=== PATIENT | female | born 1955 | race Caucasian/White ===

== ENCOUNTER 2021-06-26 10:40 | Observation (INO) | payer OTHER ==
--- OUTSIDE RECORDS SUMMARY | 2021-06-26 10:49 | XMS REPORT | Continuity of Care Document ---
:1955 Author Organization [facility] t Address [address] [place] [address] Dr. Membreno[address] [place] [address] Care Team Providers Name Role Phone Sagar Sebastian MD Attending Clinician Problems This patient has no known problems. Allergies, Adverse Reactions, Alerts This patient has no known allergies or adverse reactions. Medications This patient has no known medications. Procedures This patient has no known procedures. Encounters Start End Encounter Admission Attending Care Care Encounter Source Date/Time Date/Time Type Type Clinicians Facility Department ID 2021-06-25 2021-06-25 Telephone [facility] [id number] 00:00:00 00:00:00 Uvaldo Keith [place] [id number] [place] [id number] [facility] [id number] [address] 2021-06-19 2021-06-19 [facility] [id number] 09:35:11 23:59:00 Encounter Uvaldo Keith [facility] [id number] [facility] [id number] CENTER AT [phone] [facility] [address] [facility] 2021-06-19 2021-06-19 [facility] [id number] 09:33:59 09:34:00 Encounter Uvaldo Gene SPECIALTY [id number] [facility] [id number] CENTER AT [id number] [facility] [address] [facility] 2021-06-19 2021-06-19 Telephone [facility], [facility] [id number] 00:00:00 00:00:00 Uvaldo Cannon [id number] [place] [id number] [facility] [phone] [address] 2021-06-13 2021-06-13 [facility] [id number] 00:00:00 00:00:00 Uvaldo Cannon [id number] [place] [id number] [facility] [phone] [address] 2021-06-11 2021-06-11 [facility] [id number] 00:00:00 00:00:00 Uvaldo Cannon [id number] [place] [id number] [facility] [phone] [address] 2021-06-05 2021-06-05 [facility] [id number] 00:00:00 00:00:00 Uvaldo Cannon [id number] [place] [id number] [facility] [phone] [address] Results This patient has no known results.
--- NOTE | 2021-06-26 12:27 | RAD REPORT ---
EXAM DESCRIPTION: US - Abdomen Exam Limited - 06/26/2021 11:48 am CLINICAL HISTORY: RUQ pain COMPARISON: CHEST PA AND LAT 2 VIEW dated 06/24/2011 FINDINGS: The gallbladder was not visualized sonographically likely removed. The common bile duct is normal measuring 3 mm. The liver demonstrates the liver has a irregular heterogenous appearance to the parenchyma which may be related to fatty infiltration, however recommend additional imaging of the liver with MRI liver pr otocol. IMPRESSION: The gallbladder is probably absent. No biliary dilatation of significance seen. Somewhat irregular and heterogenous parenchymal pattern seen involving the liver. This may be related to fatty infiltration, however recommend MRI of the liver for better assessment.
--- NOTE | 2021-06-26 12:30 | ER ---
Nurse's Notes [facility] Name: Lory Garza Age: 65 yrs Sex: Female : 1955 Arrival Date: 06/26/2021 Time: 10:50 Bed Waiting Private MD: Maurizio Simpson V Diagnosis: Right upper quadrant abdominal tenderness Presentation: 06/26 12:19 Chief complaint: Patient states: Sent for direct admission by Dr. Simpson for RUQ pain. ss Coronavirus screen: Client denies travel out of the [place] in the last 14 days. Ebola Screen: Patient denies exposure to infectious person. Patient denies travel to an Ebola-affected area in the 21 days before illness onset. Initial Sepsis Screen: Does the patient have a suspected source of infection? No. Patient's initial sepsis screen is negative. 12:19 Method Of Arrival: Ambulatory ss 12:19 Acuity: ANNIE 3 ss Triage Assessment: 12:26 General: Appears Behavior is. General: Appears in no apparent distress. distressed, kg Behavior is calm, cooperative, appropriate for age, quiet. Pain: Unable to use pain scale. Dementia. GI:. Historical: - Immunization history:: Adult Immunizations up to date, Client reports receiving the 2nd dose of the Covid vaccine. Screenin:25 Abuse screen: Denies threats or abuse. Denies injuries from another. Nutritional kg screening: No deficits noted. Tuberculosis screening: No symptoms or risk factors identified. Fall Risk None identified. Vital Signs: 12:22 BP 153 / 76; Pulse 85; Resp 20; Temp 98.0; Pulse Ox 99% ; Weight 90.8 kg; Height 5 ft. kg 0 in. (152.40 cm); 12:22 Body Mass Index 39.09 (90.80 kg, 152.40 cm) kg ED Course: 10:50 Patient arrived in ED. as 10:50 Maurizio Simpson MD is Private Physician. as 12:19 Arm band placed on right wrist. ss 12:20 Triage completed. ss 12:25 Patient has correct armband on for positive identification. kg 12:28 Maurizio Simpson MD is Hospitalizing Provider. ss Administered Medications: No medications were administered Outcome: 12:27 Admitted to Med/surg via wheelchair. ss 12:27 Condition: good 12:27 Instructed on the need for admit. 12:29 Decision to Hospitalize by Provider. 12:30 Patient left the ED. ss Signatures: Aditi Ordaz Shelby, RN RN ss Anjelica Perez RN RN kg Corrections: (The following items were deleted from the chart) : 12: Allergies: No Known Allergies; kg kg 12: 12: Home Meds: None; kg kg
[2021-06-26 13:13] VITALS: BMI 37.8
[2021-06-26] MEDS ORDERED: NACHLORIDE 0.45% 1,000 ML IV SCH (14:00)
[2021-06-26 15:06] VITALS: O2SAT 98
--- NOTE | 2021-06-26 15:32 | RAD REPORT ---
EXAM DESCRIPTION: RAD - Chest Pa And Lat (2 Views) - 06/26/2021 3:19 pm CLINICAL HISTORY: RUQ Abdominal pain COMPARISON: CHEST PA AND LAT 2 VIEW dated 06/24/2011; CHEST SINGLE VIEW dated 01/15/2009; CHEST PA AND LAT 2 VIEW dated 01/06/2004 FINDINGS: No evidence of edema or pneumonia. The heart size is within normal limits.No acute osseous abnormality. No significant pleural effusions or pneumothorax. Surgical clips in right upper quadran t. IMPRESSION: No acute cardiopulmonary disease.
--- NOTE | 2021-06-26 16:04 | CON ---
Date of Consultation: 06/26/2021 Reason For Consultation: Abdominal pain. History Of Present Illness: The patient is a 65-year-old female, who presents to Dr. Simpson's office with several months history of upper abdominal pain associated with bloating, belching, and heartburn . No diarrhea or constipation. No blood in her stool. No weight loss. No loss of appetite. No dy suria or hematuria. No sore throat, runny nose, cough, headaches, or dizziness. No chest pain. No fever or chills. Please note, the patient is a poor historian because of her Alzheimer. pro vided most of the history. She saw Dr. Simpson and was tender in the upper abdomen. She was admitted for further workup. Review of Systems: Otherwise unremarkable. Past Medical History: Significant for Alzheimer. Past Surgical History: Hysterectomy, possible cholecystectomy. Allergies: INCLUDE HYDROCODONE. Social History: The patient does not smoke or drink. Family History: Chemical induced cancer in the father secondary to benzidine, the type of cancer unk nown. Physical Examination: Vital Signs: Stable. She is currently afebrile. General: Awake alert, confused. Head and Neck: No masses. Chest: Clear. Heart: S1 and S2. Abdomen: Soft, nondistended. Positive bowel sounds. Mild epigastric right upper quadrant and left lower quadrant tenderness. No rebound, rigidity, or guarding. Extremities: Adequately perfused. Nontender. Neuro: Nonfocal. Laboratory Data: CBC is pending. Chemistry is pending. Ultrasound done earlier today reviewed and it shows gallbladder is probably absent. No biliary dilatation of significance seen. Somewhat irreg ular and heterogeneous parenchymal pattern seen involving the liver. This may be related to fatty in filtration. Recommended MRI of the liver for better assessment. Assessment: A 65-year-old female with multiple medical problems and abdominal pain etiology unclear at this time. Discussed the case with Dr. Simpson. Recommendations: We will proceed with CT of the abdomen and pelvis to better evaluate all the other organs grossly and then we will proceed with MRI of the liver if it is indicated. We will do serial abdominal exam and clinically follow this patient at this time. No need for any acute surgical inter vention. She may also benefit from a GI workup. stated that she did have a colonoscopy 2 an d half years ago, which was unremarkable. /MODL Voice ID: [id number] Report ID: [id number]
[2021-06-26 16:43] LABS: Absolute Lymphocytes (CBC) 2.2 K/uL (0.7-4.9); Hematocrit 48.6 % (36.0-45.0); Lymphocytes % 27.8 % (15.3-44.8); MPV 8.5 fL (7.6-11.3); Protime INR 1.05; RBC Red Blood Cell Count 5.12 M/uL (3.86-4.86)
[2021-06-26 16:54] LABS: Albumin 3.6 g/dL (3.4-5.0); Bilirubin Direct 0.2 mg/dL (0-0.2); Bilirubin Total 0.6 mg/dL (0.2-1.0); Potassium 3.8 mmol/L (3.5-5.1); Protein, Total 7.8 g/dL (6.4-8.2)
[2021-06-26] MEDS ORDERED: PNEUMOCOCCAL VACCINE 0.5 ML IMVAC ONE (17:00)
[2021-06-26 17:19] LABS: Magnesium 2.5 mg/dL (1.8-2.4); Phosphorus 3.5 mg/dL (2.5-4.9); Thyroid Stimulating Hormone 1.02 uIU/mL (0.360-3.740)
--- NOTE | 2021-06-26 18:16 | RAD REPORT ---
EXAM DESCRIPTION: CTAbdomen Pelvis W Contrast - 06/26/2021 6:09 pm CLINICAL HISTORY: Abdominal pain. RUQ pain COMPARISON: No comparisons TECHNIQUE: Biphasic CT imaging of the abdomen and pelvis was performed with 100 ml non-ionic IV cont rast. All CT scans are performed using dose optimization technique as appropriate and may include automated exposure control or mA/KV adjustment according to patient size. FINDINGS: The lung bases are clear.Small hiatal hernia. The liver, spleen, pancreas, adrenal glands and kidneys are within normal limits. Cholecystectomy. No bowel obstruction, free air, free fluid or abscess. Scattered colonic diverticula. No evidence of acute diverticulitis. The appendix is normal. No evidence of significant lymphadenopathy. No suspicious bony findings. IMPRESSION: No acute intra-abdominal or pelvic finding.
[2021-06-26] MEDS ORDERED: ACETAMINOPHEN 325 MG TABLET PO PRN (19:00)
[2021-06-26] MEDS ORDERED: ONDANSETRON 4 MG/2 ML VIAL IV PRN (19:00)
[2021-06-26] MEDS ORDERED: ONDANSETRON 4 MG (ODT) TAB PO PRN (19:00)
[2021-06-26] MEDS ORDERED: DIPHENHYDRAMINE 25 MG TAB/CAP PO PRN (19:00)
[2021-06-26] MEDS ORDERED: POLYETHYL GLY 3350 17 GM/DOSE PO PRN (19:00)
[2021-06-26] MEDS ORDERED: LOPERAMIDE HCL 2 MG CAPSULE PO PRN (19:00)
[2021-06-26] MEDS ORDERED: METRONIDAZOLE 500mg IVPB 500 MG/100 ML BAG IV SCH (20:00)
[2021-06-26] MEDS: ENOXAPARIN 40 MG/0.4 ML SQ SCH (20:00)
[2021-06-26] MEDS ORDERED: CEFOXITIN/SWI 1gm 1 GM/10 ML SYR IVP SCH (20:00)
[2021-06-27 06:20] LABS: Basophils % 0.7 % (0-1.3); Hematocrit 45.3 % (36.0-45.0); MPV 8.8 fL (7.6-11.3); RBC Red Blood Cell Count 4.83 M/uL (3.86-4.86)
[2021-06-27 06:41] LABS: Magnesium 2.5 mg/dL (1.8-2.4); Potassium 3.9 mmol/L (3.5-5.1)
[2021-06-27] MEDS ORDERED: DIVALPROEX SODIUM 125 MG PO SCH (09:00)
[2021-06-27] MEDS: ENOXAPARIN 40 MG/0.4 ML SQ SCH (09:00)
[2021-06-27] MEDS ORDERED: PANTOPRAZOLE 40 MG PO SCH (09:00)
[2021-06-27] MEDS ORDERED: OXYBUTYNIN CHLORIDE 5 MG PO SCH (09:00)
[2021-06-27] MEDS ORDERED: MEMANTINE HCL 28 MG PO SCH (09:00)
[2021-06-27 10:06] VITALS: BP 140/77; TEMP 97.4
--- NOTE | 2021-06-27 11:54 | P.DS ---
Admission Date: 06/26/21 Discharge Date: 06/27/21 Disposition: ROUTINE DISCHARGE Discharge Condition: FAIR Brief History of Present Illness: MS RODRIGUEZ IS SEVERELY DEMENTED AND NOT ABLE TO EXPRESS MUCH. SHE HASD SEVERE R SDIE ABDOMEN PAIN. SHE LATER WE FOUND HAS NO GALL BLADDER. NO SCARS ARE VISIBLE. SONOGRAM AND CT SCAN SHOW NO ISSUES. SHE IS STABLE TO GO HOME. Vital Signs/Physical Exam: Temp Pulse Resp BP Pulse Ox 97.4 F 51 17 140/77 98 06/27/21 08:00 06/27/21 08:00 06/27/21 08:00 06/27/21 08:00 06/27/21 08:00 Laboratory Data at Discharge: WBC 8.20 K/uL (4.3-10.9) 06/27/21 05:55 Hgb 15.7 g/dL (12.0-15.0) H 06/27/21 05:55 Hct 45.3 % (36.0-45.0) H 06/27/21 05:55 Plt Count 188 K/uL (152-406) 06/27/21 05:55 PT 12.1 SECONDS (9.5-12.5) 06/26/21 16:23 INR 1.05 06/26/21 16:23 APTT 29.9 SECONDS (24.3-36.9) 06/26/21 16:23 Sodium 142 mmol/L (136-145) 06/27/21 05:55 Potassium 3.9 mmol/L (3.5-5.1) 06/27/21 05:55 BUN 11 mg/dL (7-18) 06/27/21 05:55 Creatinine 0.70 mg/dL (0.55-1.3) 06/27/21 05:55 Glucose 79 mg/dL (74-106) 06/27/21 05:55 Phosphorus 3.5 mg/dL (2.5-4.9) 06/26/21 16:23 Magnesium 2.5 mg/dL (1.8-2.4) H 06/27/21 05:55 Total Bilirubin 0.6 mg/dL (0.2-1.0) 06/26/21 16:23 AST 17 U/L (15-37) 06/26/21 16:23 ALT 29 U/L (12-78) 06/26/21 16:23 Alkaline Phosphatase 70 U/L (45-117) 06/26/21 16:23 Home Medications: Divalproex Sodium 125 mg PO TID 06/27/21 Donepezil HCl 10 mg PO BEDTIME 06/27/21 Levothyroxine [Synthroid] 88 mcg PO [id number] 06/27/21 Memantine HCl [Memantine HCl ER] 28 mg PO DAILY 06/27/21 Oxybutynin Chloride [Ditropan*] 5 mg PO BID 06/27/21 Pantoprazole [Protonix Tab*] 40 mg PO DAILY 06/27/21 Physician Discharge Instructions: PROBLEM: Abdominal Pain GOAL: Clear understanding of disease process INSTRUCTIONS: Diet: as tolerated Activity: as tolerated Diet: Regular Followup: Maurizio Simpson MD [Primary Care Provider] - (Call office to make an appointment. )
[2021-06-27] MEDS ORDERED: HOME MED 1 EA UNK (Donepezil Hcl [Donepezil Hcl] 10 MG Tablet) PO SCH (21:00)
[2021-06-28] MEDS ORDERED: LEVOTHYROXINE PO SCH (06:00)
== END 2021-06-27 12:19 | disposition home or self-care (01) ==
LOC: ER 10:40 → ERHOLD 10:49 → 2ND 12:47
PROVIDERS: ADMIT Internal Medicine; ATTEND Internal Medicine
DX: R10.11 Right upper quadrant pain (principal); G30.9 Alzheimer's disease, unspecified; F02.80 Dementia in other diseases classified elsewhere, unspecified severity, without behavioral disturbance, psychotic disturbance, mood disturbance, and anxiety; Z90.710 Acquired absence of both cervix and uterus; Z88.6 Allergy status to analgesic agent; Z80.9 Family history of malignant neoplasm, unspecified
CPT/HCPCS: 93005; 85025 ×2; 80048 ×2; 36415 ×2; 83735 ×2; 84100; 85610; 80076; 85730; 84443; 82607; 82306; 74177; 71046; 76705; 99285; Q9967; J1650; G0378 ×4

== ENCOUNTER 2022-04-07 13:48 | Observation (INO) | payer OTHER ==
--- OUTSIDE RECORDS SUMMARY | 2022-04-07 16:01 | XMS REPORT | Continuity of Care Document ---
:1955 Author Organization Formerly [facility] t Address [address] [place] [address] Dr. [address]oro [address] [place] [address] Care Team Providers Name Role Phone BarronAlyssa Primary Care Physician GRIMM Attending Clinician Unavailable Jessica Sebastian MD Attending Clinician Ebony STARKEY Attending Clinician EBONY Attending Clinician Unavailable Leopoldo RAMOS Attending Clinician Unavailable Only, Db Test Attending Clinician Unavailable Rj STARKEY Attending Clinician RJ Attending Clinician Unavailable UNKNOWN Attending Clinician Unavailable JESSICA SEBASTIAN Attending Clinician Unavailable JESSICA SEBASTIAN Attending Clinician Unavailable Tisha Attending Clinician Unavailable Tisha Admitting Clinician Unavailable Payers Payer Name Policy Type Policy Number Effective Date Expiration Date S susanne HMO/QPOS/SELECT - [id number] 2006 00:00:00 [employer] CHOICE [id number] PPO/MEDICARE PPO Problems Condition Condition Condition Status Onset Resolution Last Treating Co mments Source Name Details Category Date Date Treatment Clinician Date No known No known Disease NPI:1 83 active active [id number] problems problems Allergies, Adverse Reactions, Alerts Allergy Allergy Status Severity Reaction(s) Onset Inactive Treating Comm ents Source Name Type Date Date Clinician NO KNOWN Drug Active NPI:183 ALLERGIE Class [id number] S Social History Social Habit Start Date Stop Date Quantity Comments Source Exposure to Yes NPI:[id number] 1 SARS-CoV-2 (event) Tobacco use and 2022-03-19 2022-03-19 Smokeless tobacco [employer] exposure 00:00:00 00:00:00 non-user of Medicine Alcohol intake 2022-03-19 2022-03-19 Ex-drinker [facility] [employer] 00:00:00 00:00:00 (finding) of Medicine Sex [birth year] [facility] [employer] 00:00:00 00:00:00 of Medicine Smoking Status Start Date Stop Date Source Never smoked tobacco [facility] Manuel ege of Medicine Medications Ordered Filled Start Stop Current Ordering Indication Dosage Frequency Signature Comments Components Source Medication Medication Date Date Medication? Clinician (SIG) Name Name citalopram 2021- No 40mg Take 40 mg [facility] (CELEXA) 40 4-20 -20 by mouth Col lege MG tablet 10:51: 00:00 daily. of 56 :00 Medicin e divalproex Yes 250mg Take 250 [employer] (DEPAKOTE) 4-20 mg by [place] 250 MG ER 10:51: mouth two of tablet 53 times Medicin daily. e Memantine Yes Take by [facility] HCl ER 28 4-20 mouth. College MG CP24 10:51: of 53 Medicin e aspirin 81 2021- No 81mg Take 81 mg Dilshad MG tablet 4-20 04-20 by mouth Colle ge 10:51: 00:00 daily. of 53 :00 Medicin e amphetamine 2021- No 10mg Take 10 mg [facility] -dextroamph 4-20 -20 by mouth 2 C [employer] etamine 10:51: 00:00 times of (ADDERALL) 53 :00 daily. Medicin 10 MG e tablet donepezil Yes 10mg Take 10 mg [employer] (ARICEPT) 4-20 by mouth Colleg e 10 MG 10:08: nightly. of tablet 37 Medicin e trazodone Yes 1/2 to one [employer] (DESYREL) 4-20 tab at College 50 MG 00:00: bedtime of tablet 00 Medicin e DIVALPROEX Yes [id number] TAKE 1 N PI:183 250 mg EC 4-18 [place] [id number] 81 tablet 00:00: MOUTH 00 THREE TIMES A DAY pantoprazol 0 Yes [facility] khadijah 4-17 [place] (PROTONIX) 00:00: of 40 MG 00 Medicin tablet e DONEPEZIL 0 Yes [id number] TAKE 1 NPI :183 10 mg 3-31 TABLET BY [id number] tablet 00:00: MOUTH 00 EVERYDAY AT BEDTIME DONEPEZIL 2021-0 Yes [id number] TAKE 1 NPI :183 10 mg 3-31 TABLET BY [id number] tablet 00:00: MOUTH 00 EVERYDAY AT BEDTIME oxybutynin 0 Yes TAKE 1 [facility] (DITROPAN) 3-12 TABLET BY [facility] 5 MG tablet 00:00: MOUTH of 00 TWICE A Medicin DAY e divalproex 0 Yes 125mg Take 125 [employer] [facility] (DEPAKOTE) 2-09 mg by [place] 125 MG EC 00:00: mouth two of tablet 00 times Medicin daily. e levothyroxi Yes TAKE 1 [facility] ne 2-09 TABLET BY [place] (SYNTHROID) 00:00: MOUTH of 88 MCG 00 EVERY Medicin tablet MORNING ON e EMPTY STOMACH divalproex 0 Yes [id number] 125mg Take 1 NPI:183 125 mg EC 2-07 31 [place] [id number] 81 tablet 00:00: mouth 2 00 (two) times daily. Take one tablet in the morning and evening, take this with the 250mg (total of 375 in morning and evening) divalproex 2021-0 Yes [id number] 125mg Take 1 NPI:183 125 mg EC 2 01 [place] [id number] 81 tablet 00:00: mouth 2 00 (two) times daily. Take one tablet in the morning and evening, take this with the 250mg (total of 375 in morning and evening) divalproex 2021-0 Yes [id number] 125mg Take 1 NPI:183 125 mg EC 2 01 tablet [place] [id number] 81 tablet 00:00: mouth 2 00 (two) times daily. Take one tablet in the morning and evening, take this with the 250mg (total of 375 in morning and evening) dexamethaso 2021-0 2021- No [id number] 10mg N PI:183 ne 12-29 [id number] (DECADRON) 16:45: 16:01 injection 00 :00 10 mg acetaminoph 2021- No [id number] 650mg NPI:183 en 12-29 [id number] (TYLENOL) 16:45: 15:49 tablet 650 00 :00 mg acetaminoph 2021- No [id number] 650mg 650 mg, NPI:183 en 12-29 Oral, [id number] (TYLENOL) 16:45: 15:49 ONCE, 1 tablet 650 00 :00 dose, On mg [place] 12/29/21 at 1045, Routine dexamethaso 2021- No [id number] 10mg 10 mg, NPI:183 ne 12-29 Intramuscu [id number] (DECADRON) 16:45: 16:01 lar, ONCE, injection 00 :00 1 dose, On 10 mg [place] 12/29/21 at 1045, Routine albuterol Yes [id number] 2{puff} Inhale 2 NPI:183 90 1-30 Puffs [id number] mcg/actuati 00:00: every 6 on inhaler 00 (six) hours as needed for Wheezing or Shortness of Breath. bromphenira Yes [id number] 10mL Take 10 mL NPI:183 mine-pseudo 1-30 by mouth 4 13 03829 ephedrine-D 00:00: (four) M (BROMFED 00 times DM) 2-30-10 daily as mg/5 mL needed for syrup Congestion /Allergies . albuterol Yes [id number] 2{puff} Inhale 2 NPI:183 90 1-30 Puffs [id number] mcg/actuati 00:00: every 6 on inhaler 00 (six) hours as needed for Wheezing or Shortness of Breath. bromphenira Yes [id number] 10mL Take 10 mL NPI:183 mine-pseudo 1-30 by mouth 4 13 04225 ephedrine-D 00:00: (four) M (BROMFED 00 times DM) 2-30-10 daily as mg/5 mL needed for syrup Congestion /Allergies . albuterol Yes [id number] 2{puff} Inhale 2 NPI:183 90 1-30 Puffs [id number] mcg/actuati 00:00: every 6 on inhaler 00 (six) hours as needed for Wheezing or Shortness of Breath. bromphenira Yes [id number] 10mL Take 10 mL NPI:183 mine-pseudo 1-30 by mouth 4 13 59945 ephedrine-D 00:00: (four) M (BROMFED 00 times DM) 2-30-10 daily as mg/5 mL needed for syrup Congestion /Allergies . albuterol Yes [id number] 2{puff} Inhale 2 NPI:183 90 1-30 Puffs [id number] mcg/actuati 00:00: every 6 on inhaler 00 (six) hours as needed for Wheezing or Shortness of Breath. bromphenira Yes [id number] 10mL Take 10 mL NPI:183 mine-pseudo 1-30 by mouth 4 13 47442 ephedrine-D 00:00: (four) M (BROMFED 00 times DM) 2-30-10 daily as mg/5 mL needed for syrup Congestion /Allergies . albuterol Yes [id number] 2{puff} Inhale 2 NPI:183 90 1-30 Puffs [id number] mcg/actuati 00:00: every 6 on inhaler 00 (six) hours as needed for Wheezing or Shortness of Breath. bromphenira 0 Yes [id number] 10mL Take 10 mL NPI:183 mine-pseudo 1-30 by mouth 4 13 17107 ephedrine-D 00:00: (four) M (BROMFED 00 times DM) 2-30-10 daily as mg/5 mL needed for syrup Congestion /Allergies . DIVALPROEX 2020-1 Yes [id number] TAKE 1 N PI:183 250 mg EC 0-18 [place] [id number] 81 tablet 00:00: MOUTH 00 THREE TIMES A DAY DIVALPROEX 202-1 Yes [id number] TAKE 1 N PI:183 250 mg EC 0-18 [place] [id number] 81 tablet 00:00: MOUTH 00 THREE TIMES A DAY DIVALPROEX 202-1 Yes [id number] TAKE 1 N PI:183 250 mg EC 0-18 [place] [id number] 81 tablet 00:00: MOUTH 00 THREE TIMES A DAY DIVALPROEX 202-1 Yes [id number] TAKE 1 N PI:183 250 mg EC 0-18 [place] [id number] 81 tablet 00:00: MOUTH 00 THREE TIMES A DAY DIVALPROEX 2020-1 Yes [id number] TAKE 1 N PI:183 250 mg EC 0-18 [place] [id number] 81 tablet 00:00: MOUTH 00 THREE TIMES A DAY DIVALPROEX 2020-1 Yes [id number] TAKE 1 N PI:183 250 mg EC 0-18 [place] [id number] 81 tablet 00:00: MOUTH 00 THREE TIMES A DAY DIVALPROEX 2020-1 2022- No [id number] TAKE 1 NPI:183 250 mg EC 0-18 04-18 TABLET BY [id number] 781 tablet 00:00: 00:00 MOUTH 00 :00 THREE TIMES A DAY DONEPEZIL 2020-1 Yes [id number] TAKE 1 NPI :183 10 mg 0-05 TABLET BY [id number] tablet 00:00: MOUTH 00 EVERYDAY AT BEDTIME DONEPEZIL 2020-1 Yes [id number] TAKE 1 NPI :183 10 mg 0-05 TABLET BY [id number] tablet 00:00: MOUTH 00 EVERYDAY AT BEDTIME DONEPEZIL 2020-1 Yes [id number] TAKE 1 NPI :183 10 mg 0-05 TABLET BY [id number] tablet 00:00: MOUTH 00 EVERYDAY AT BEDTIME DONEPEZIL 2020-1 Yes [id number] TAKE 1 NPI :183 10 mg 0-05 TABLET BY [id number] tablet 00:00: MOUTH 00 EVERYDAY AT BEDTIME DONEPEZIL 2020-1 Yes [id number] TAKE 1 NPI :183 10 mg 0-05 TABLET BY [id number] tablet 00:00: MOUTH 00 EVERYDAY AT BEDTIME DONEPEZIL 2020-1 Yes [id number] TAKE 1 NPI :183 10 mg 0-05 TABLET BY [id number] tablet 00:00: MOUTH 00 EVERYDAY AT BEDTIME DONEPEZIL 1-1 2- No [id number] 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 divalproex 2020-0 Yes [id number] 250mg Take 1 NPI:183 250 mg EC 9-21 tablet [place] [id number] 81 tablet 00:00: mouth 3 00 (three) times daily. divalproex 2020-0 2021- No [id number] 250mg Take 1 NPI:183 250 mg EC 9-21 10-18 tablet by [id number] 781 tablet 00:00: 00:00 mouth 3 00 :00 (three) times daily. MEMANTINE 2020-0 Yes [id number] TAKE 1 NPI :183 28 mg 8-26 CAPSULE BY [id number] capsule 00:00: MOUTH 00 EVERYDAY AT BEDTIME MEMANTINE 2020-0 Yes [id number] TAKE 1 NPI :183 28 mg 8-26 CAPSULE BY [id number] capsule 00:00: MOUTH 00 EVERYDAY AT BEDTIME MEMANTINE 2020-0 Yes [id number] TAKE 1 NPI :183 28 mg 8-26 CAPSULE BY [id number] capsule 00:00: MOUTH 00 EVERYDAY AT BEDTIME MEMANTINE 2020-0 Yes [id number] TAKE 1 NPI :183 28 mg 8-26 CAPSULE BY [id number] capsule 00:00: MOUTH 00 EVERYDAY AT BEDTIME MEMANTINE 2020-0 Yes [id number] TAKE 1 NPI :183 28 mg 8-26 CAPSULE BY [id number] capsule 00:00: MOUTH 00 EVERYDAY AT BEDTIME MEMANTINE 2020-0 Yes [id number] TAKE 1 NPI :183 28 mg 8-26 CAPSULE BY [id number] capsule 00:00: MOUTH 00 EVERYDAY AT BEDTIME MEMANTINE 2020-0 Yes [id number] TAKE 1 NPI :183 28 mg 8-26 CAPSULE BY [id number] capsule 00:00: MOUTH 00 EVERYDAY AT BEDTIME MEMANTINE 2020-0 Yes [id number] TAKE 1 NPI :183 28 mg 8-26 CAPSULE BY [id number] capsule 00:00: MOUTH 00 EVERYDAY AT BEDTIME MEMANTINE 2020-0 Yes [id number] TAKE 1 NPI :183 28 mg 8-26 CAPSULE BY [id number] capsule 00:00: MOUTH 00 EVERYDAY AT BEDTIME MEMANTINE 2020-0 Yes [id number] TAKE 1 NPI :183 28 mg 8-26 CAPSULE BY [id number] capsule 00:00: MOUTH 00 EVERYDAY AT BEDTIME divalproex 1-0 Yes [id number] 125mg Take 1 NPI:183 125 mg EC 6-01 [place] [address] 81 tablet 00:00: mouth 3 00 (three) times daily. divalproex 2021-0 2021- No [id number] 125mg Take 1 NPI:183 125 mg EC -08-20 tablet by [id number] 781 tablet 00:00: 00:00 mouth 3 00 :00 (three) times daily. 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 38 oxybutynin 2021-0 Yes 5mg Take 5 mg EXTRUSION MACHINE OPERATOR I:183 chloride 5 2-01 by mouth 58401 81 mg tablet 09:35: daily. 38 oxybutynin 2021-0 Yes 5mg Take 5 mg EXTRUSION MACHINE OPERATOR I:183 chloride 5 2-01 by mouth 84353 81 mg tablet 09:35: daily. 38 oxybutynin 2021-0 Yes 5mg Take 5 mg EXTRUSION MACHINE OPERATOR I:183 chloride 5 2-01 by mouth 29331 81 mg tablet 09:35: daily. 38 oxybutynin 2021-0 Yes 5mg Take 5 mg EXTRUSION MACHINE OPERATOR I:183 chloride 5 2-01 by mouth 64903 81 mg tablet 09:35: daily. 38 oxybutynin 2021-0 Yes 5mg Take 5 mg EXTRUSION MACHINE OPERATOR I:183 chloride 5 2-01 by mouth 46815 81 mg tablet 09:35: daily. 38 oxybutynin 2021-0 Yes 5mg Take 5 mg EXTRUSION MACHINE OPERATOR I:183 chloride 5 2-01 by mouth 25868 81 mg tablet 09:35: daily. 38 oxybutynin 2021-0 Yes 5mg Take 5 mg EXTRUSION MACHINE OPERATOR I:183 chloride 5 2-01 by mouth 31009 81 mg tablet 09:35: daily. 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 38 donepeziL 2021-0 Yes [id number] 10mg Take 1 NPI :183 10 mg 1-25 tablet by [id number] tablet 00:00: mouth at 00 bedtime. donepeziL 2021-0 Yes [id number] 10mg Take 1 NPI :183 10 mg 1-25 tablet by [id number] tablet 00:00: mouth at 00 bedtime. donepeziL 0 2020- No [id number] 10mg Take 1 EXTRUSION MACHINE OPERATOR I:183 10 mg 1-25 10-05 tablet by [id number] tablet 00:00: 00:00 mouth at 00 :00 bedtime. MEMANTINE 0 2020- No [id number] TAKE 1 EXTRUSION MACHINE OPERATOR I:183 28 mg 08-08 CAPSULE BY [id number] capsule 00:00: 00:00 MOUTH 00 :00 EVERYDAY AT BEDTIME levothyroxi 2019-0 Yes 112ug Take 112 N PI:183 ne 112 mcg 3-30 mcg by [id number] tablet 00:00: mouth. 00 levothyroxi 2019-0 Yes 112ug Take 112 N PI:183 ne 112 mcg 3-30 mcg by [id number] tablet 00:00: mouth. 00 levothyroxi 2019-0 Yes 112ug Take 112 N PI:183 ne 112 mcg 3-30 mcg by [id number] tablet 00:00: mouth. 00 levothyroxi 2019-0 Yes 112ug Take 112 N PI:183 ne 112 mcg 3-30 mcg by [id number] tablet 00:00: mouth. 00 levothyroxi 2019-0 Yes 112ug Take 112 N PI:183 ne 112 mcg 3-30 mcg by [id number] tablet 00:00: mouth. 00 levothyroxi 2019-0 Yes 112ug Take 112 N PI:183 ne 112 mcg 3-30 mcg by [id number] tablet 00:00: mouth. 00 levothyroxi 2019-0 Yes 112ug Take 112 N PI:183 ne 112 mcg 3-30 mcg by [id number] tablet 00:00: mouth. 00 levothyroxi 2019-0 Yes 112ug Take 112 N PI:183 ne 112 mcg 3-30 mcg by [id number] tablet 00:00: mouth. 00 levothyroxi 2019-0 Yes 112ug Take 112 N PI:183 ne 112 mcg 3-30 mcg by [id number] tablet 00:00: mouth. 00 levothyroxi 2019-0 Yes 112ug Take 112 N PI:183 ne 112 mcg 3-30 mcg by [id number] tablet 00:00: mouth. 00 Vital Signs Vital Name Observation Time Observation Value Comments Source Systolic blood pressure 2021-12-29 15:29:00 128 mm[Hg] Diastolic blood 2021-12-29 15:29:00 67 mm[Hg] NPI:1 [id number] pressure Heart rate 2021-12-29 15:29:00 66 /min NPI:1831 [id number] Body temperature 2021-12-29 15:29:00 38.06 Trina Respiratory rate 2021-12-29 15:29:00 18 /min Body height 2021-12-29 15:29:00 152.4 cm NPI:1831 [id number] Body weight 2021-12-29 15:29:00 77.14 kg NPI:1831 [id number] BMI 2021-12-29 15:29:00 33.21 kg/m2 NPI:1831 [id number] Oxygen saturation in 2021-12-29 15:29:00 99 /min Arterial blood by Pulse oximetry Procedures This patient has no known procedures. Plan of Care Planned Activity Planned Date Details Comments Source Future Scheduled 2022-03-19 CBC W/AUTO DIFF WITH Ordered: [facility] Test 11:14:26 PLATELETS [code = 03/19/2022 of Medicin e 24725-1] Future Scheduled 2022-03-19 COMPREHENSIVE METABOLIC Ordered: [facility] Test 11:14:26 PANEL [code = 39224-4] 03/19/2022 of Mo dicine Future Scheduled 2022-03-19 VITAMIN B12 [code = Ordered: [facility] Test 11:14:26 2132-9] 03/19/2022 of Medicine Future Scheduled 2022-03-19 FOLATE [code = 2284-8] Ordered: [employer] Test 11:14:26 03/19/2022 of Medicine Future Scheduled 2022-03-19 TSH REFLEX TO FREE T4 Ordered: [employer] Test 11:14:26 [code = 3016-3] 03/19/2022 of Medicine Future Scheduled 2022-03-19 URINALYSIS AUTO W/SCOPE Ordered: [facility] Test 11:14:26 [code = 90466-1] 03/19/2022 of Medicine Future Scheduled 2022-03-19 Screening for malignant [facility] Test 10:18:30 neoplasm of colon of Medicin e (procedure) [code = 350225217] Future Scheduled 2022-03-19 Screening for malignant [facility] Test 10:18:30 neoplasm of breast of Medici ne (procedure) [code = 598629024] Future Scheduled 2022-03-19 COVID-19 Vaccine (1) [facility] Test 10:18:30 [code = COVID-19 of Medicine Vaccine (1)] Future Scheduled 2022-03-19 TETANUS SHOT (ADULT) [employer] Test 10:18:30 [code = TETANUS SHOT of Medi cine (ADULT)] Future Scheduled 2022-03-19 Hepatitis C screening Ba [facility] Test 10:18:30 (procedure) [code = of Medic ine 131351984] Future Scheduled 2022-03-19 Human immunodeficiency [facility] Test 10:18:30 virus screening of Medicine (procedure) [code = 857330932] Future Scheduled 2022-03-19 Screening for malignant [facility] Test 10:18:30 neoplasm of cervix of Medici ne (procedure) [code = 681199535] Future Scheduled 2022-03-19 ZOSTER VACCINE (1 of 2) [facility] Test 10:18:30 [code = ZOSTER VACCINE of Me dicine (1 of 2)] Future Scheduled 2022-03-19 MEDICARE AWV (Initial) B [facility] Test 10:18:30 [code = MEDICARE AWV of Medi cine (Initial)] Future Scheduled 2022-03-19 FLU VACCINE > 6 MONTHS [facility] 10:18:30 [code = FLU VACCINE > 6 of M edicine MONTHS] Encounters Start End Encounter Admission Attending Care Care Encounter Source Date/Time Date/Time Type Type Clinicians Facility Department ID 2022-03-19 2022-03-19 Office SAUL GRIMM [facility] 1..840.114 [id number] [facility] 09:58:40 12:57:50 Visit AMBULATOR 350.1.13.21 College Y 0.2.7.2.686 of [id number] Medi devyn 850 e 2022-03-15 2022-03-15 KATHY Marcum 1.2.840.114 [id number] NPI:183 00:00:00 00:00:00 [facility] 350.1.13.10 [id number] [facility] 4.2.7.2.686 JESUS MANUEL?BLEA [id number] [facility] 092 MEDICAL OFFICE BUILDING 2022-02-27 2022-02-27 Refill Romulo [facility] [[email or web address]] 1.2.840.114 [id number] NPI:183 00:00:00 00:00:00 Uvaldo Keith [facility] 350.1.13.10 [id number] [place] 4.2.7.2.686 PROFESSIO [id number] 2022-01-06 2022-01-06 Telephone Romulo [facility] [[email or web address]] 1.2.840.114 [id number] NPI:183 00:00:00 00:00:00 [facility] 350.1.13.10 [id number] [facility] 4.2.7.2.686 JESUS MANUEL?BLEA [id number] [facility] 092 MEDICAL OFFICE [facility] 2021-12-29 2021-12-29 Urgent [facility] 1.2.840.114 [id number] NPI:183 09:15:00 09:35:00 Care Sonny smiley [facility] 350.1.13.10 [id number] [facility] 4.2.7.2.686 JESUS MANUEL?BLEA [id number] [place] [address] MEDICAL OFFICE [facility] 2021-12-29 2021-12-29 Outpatient R [facility] [id number] NPI:183 09:15:00 09:15:00 [id number] 2021-12-29 2021-12-29 Outpatient R [facility] 002 [id number] NPI:183 09:15:00 09:15:00 SONNY Smiley [id number] 2021-12-29 2021-12-29 Telephone CATRACHITO Mina 1.2.840.114 [id number] NPI:183 00:00:00 00:00:00 Michael JAY 350.1.13.[id number] [place] [address] 4.2.7.2.686 [id number] 2021-12-28 2021-12-28 Laboratory Only, Ang Db Test [facility] [[email or web address]] 1.2.8 40.114 [id number] NPI:183 10:15:00 10:30:00 Only Radha Hein [facility] 350.1.13.10 [id number] [facility] 4.2.7.2.686 JESUS MANUEL?BLEA [id number] [facility] 370 MEDICAL OFFICE BUILDING 2021-12-28 2021-12-28 Outpatient R [facility] [id number] NPI:183 10:15:00 10:15:00 [id number] 2021-12-28 2021-12-28 Outpatient R RJ [facility] [id number] NPI:183 10:15:00 10:15:00 RADHA [id number] 1 2021-09-13 2021-09-13 [facility] 1.2.840.114 [id number] NPI:183 00:00:00 00:00:00 [facility] 350.1.13.10 [id number] [place] 4.2.7.2.686 Jesus Manuel?Blea [phone] [place] [address] Medical Office [facility] 2021-09-03 2021-09-03 [facility] 1.2.840.114 [id number] NPI:183 00:00:00 00:00:00 [facility] 350.1.13.10 [id number] [place] 4.2.7.2.686 Professio [id number] [address] 2021-08-15 2021-08-15 [place] [facility] 1.2.840.114 [id number] NPI:183 00:00:00 00:00:00 [facility] 350.1.13.10 [id number] [place] 4.2.7.2.686 Jesus Manuel?Blea [phone] [place] [address] Medical Office [facility] 2021-07-25 2021-07-25 [facility] 1.2.840.114 [id number] NPI:183 00:00:00 00:00:00 Uvaldo [facility] 350.1.13.10 [id number] [place] 4.2.7.2.686 Professio [id number] [address] 2021-07-19 2021-07-19 Outpatient R PATRICIO, [facility] [id number] NPI:183 14:40:00 14:40:00 ATTENDING [id number] 5365-08-20 2021-07-19 Outpatient UVALDO LOFTON [facility] [id number] NPI:183 14:20:00 14:20:00 UVALDO SEBASTIAN [id number] 2021-07-19 Outpatient UVALDO LOFTON [facility] [id number] NPI:183 14:20:00 14:20:00 UVALDO SEBASTIAN [id number] 2021-07-08 Outpatient UVALDO LOFTON [facility] [id number] NPI:183 09:40:00 09:40:00 UVALDO SEBASTIAN [id number] 2021-07-08 Outpatient UVALDO LOFTON [facility] [id number] NPI:183 09:40:00 09:40:00 UVALDO SEBASTIAN [id number] 2021-07-04 Outpatient UVALDO LOFTON [facility] [id number] NPI:183 09:30:00 09:30:00 UVALDO SEBASTIAN [id number] 2021-07-04 Outpatient UVALDO LOFTON [facility] [id number] NPI:183 09:30:00 09:30:00 UVALDO SEBASTIAN [id number] 2021-06-25 [place] Romulo [facility] [[email or web address]] 1.2.840.114 [id number] 00:00:00 00:00:00 Uvaldo Cannon 350.1.13.10 [place] 4.2.7.2.686 [facility] [id number] [facility] 092 [facility] 2021-06-19 2021-06-19 [facility] 1.2.211.383 [id number] 09:35:11 23:59:00 [facility] Uvaldo MONTENEGRO 350.1.13.10 [facility] 4.2.7.2.686 CENTER AT [id number] [place] [address] [facility] 2021-06-19 2021-06-19 Outpatient UVALDO SEBASTIAN [facility] [id number] NPI:183 10:00:00 10:00:00 UVALDO SEBASTIAN [id number] 2021-06-19 [facility] [id number] [id number] 09:33:59 09:34:00 Encounter Uvaldo MONTENEGRO 350.1.13.10 [facility] 4.2.7.2.686 CENTER AT [id number] DESTINY [address] [place] [address] 2021-06-19 2021-06-19 [place] [facility] 1.2.840.114 [id number] 00:00:00 00:00:00 Uvaldo Cannon 350.1.13.10 [place] 4.2.7.2.686 Professio [id number] [address] 2021-06-13 2021-06-13 [place] [facility] 1.2.840.114 [id number] 00:00:00 00:00:00 Uvaldo Cannon 350.1.13.10 [place] 4.2.7.2.686 Professio [id number] [address] 2021-06-11 2021-06-11 [place] [facility] 1.2.840.114 [id number] 00:00:00 00:00:00 Uvaldo Cannon [id number] [place] [id number] Professio [id number] [address] 2021-06-05 2021-06-05 [place] [facility] [id number] 00:00:00 00:00:00 Uvaldo Cannon [id number] [place] 4.2.7.2.686 Professio [id number] [address] 2021-05-13 2021-05-13 Outpatient Maria Del Carmen ROMULOUVALDO [facility] [id number] NPI:183 11:00:00 11:00:00 ROMULOUVALDO [id number] 6316-06-14 2021-05-13 Outpatient Maria Del Carmen ROMULOUVALDO Rios [facility] [id number] NPI:183 11:00:00 11:00:00 UVALDO SEBASTIAN [id number] 6960-02-01 2020-12-31 Outpatient UVALDO LOFTON [facility] [id number] NPI:183 09:20:00 09:20:00 UVALDO SEBASTIAN [id number] 2522-02-01 2020-12-31 Outpatient UVALDO LOFTON [facility] [id number] NPI:183 09:20:00 09:20:00 UVALDO SEBASTIAN [id number] 3617-10-07 2020-09-05 Outpatient Young_J MMG G [id number] NPI:167 10:45:00 10:45:[address] [facility] [id number] 2020-08-21 2020-08-21 Outpatient UVALDO LOFTON [facility] [id number] NPI:183 16:00:00 16:00:00 UVALDO SEBASTIAN [id number] 3728-09-22 2020-08-21 Outpatient [facility]VALDO LOFTON [facility] [facility] [id number] NPI:[id number] 16:00:00 16:00:00 UVALDO SEBASTIAN [id number] 2020-05-15 Outpatient UVALDO SEBASTIAN [facility] [id number] NPI:[id number] 13:40:00 13:40:00 UVALDO SEBASTIAN [id number] 2016-06-16 2020-05-15 Outpatient UVALDO LOFTON [facility] [id number] NPI:[id number] 13:40:00 13:40:00 UVALDO SEBASTIAN [id number] Results This patient has no known results.
[2022-04-07 16:43] VITALS: BMI 28.3
[2022-04-07] MEDS ORDERED: ZIPRASIDONE MESYLA 20 MG/VIAL IM PRN (17:30)
[2022-04-07] MEDS ORDERED: WATER FOR INJ,STERILE 10 ML IM PRN (17:30)
[2022-04-07] MEDS: LORazepam 2 MG/ML VIAL IV PRN ×2 (17:55→22:59)
[2022-04-07] MEDS ORDERED: ONDANSETRON 4 MG/2 ML VIAL IV PRN (18:00)
[2022-04-07] MEDS ORDERED: POLYETHYL GLY 3350 17 GM/DOSE PO PRN (18:00)
[2022-04-07] MEDS ORDERED: ONDANSETRON 4 MG (ODT) TAB PO PRN (18:00)
[2022-04-07] MEDS ORDERED: ACETAMINOPHEN 325 MG TABLET PO PRN (18:00)
[2022-04-07] MEDS ORDERED: LOPERAMIDE HCL 2 MG CAPSULE PO PRN (18:00)
[2022-04-07] MEDS ORDERED: DIPHENHYDRAMINE 25 MG TAB/CAP PO PRN (18:00)
[2022-04-07] MEDS ORDERED: PNEUMOCOCCAL VACCINE 0.5 ML IMVAC ONE (18:00)
[2022-04-07] MEDS ORDERED: NACHLORIDE 0.45% 1,000 ML IV SCH (18:00)
[2022-04-07] MEDS ORDERED: ENOXAPARIN 40 MG/0.4 ML SQ SCH (18:01)
[2022-04-07 18:19] LABS: Absolute Lymphocytes (CBC) 2.4 K/uL (0.7-4.9); Hematocrit 42.3 % (36.0-45.0); Lymphocytes % 30.8 % (15.3-44.8); MPV 8.2 fL (7.6-11.3); RBC Red Blood Cell Count 4.33 M/uL (3.86-4.86)
[2022-04-07 18:50] LABS: Albumin 3.4 g/dL (3.4-5.0); Bilirubin Direct 0.1 mg/dL (0-0.2); Bilirubin Total 0.6 mg/dL (0.2-1.0); Magnesium 2.5 mg/dL (1.8-2.4); Phosphorus 2.7 mg/dL (2.5-4.9); Potassium 3.3 mmol/L (3.5-5.1); Protein, Total 6.8 g/dL (6.4-8.2); Thyroid Stimulating Hormone 0.111 uIU/mL (0.360-3.740)
--- NOTE | 2022-04-07 19:49 | RAD REPORT ---
EXAM DESCRIPTION: RAD - Chest Pa And Lat (2 Views) - 04/07/2022 7:41 pm CLINICAL HISTORY: direct admit Chest pain. COMPARISON: Chest Pa And Lat (2 Views) dated 06/26/2021; CHEST PA AND LAT 2 VIEW dated 06/24/2011; [facility] SINGLE VIEW dated 01/15/2009; CHEST PA AND LAT 2 VIEW dated 01/06/2004 FINDINGS: The lungs are clear. The heart is normal in size. No displaced fractures. Small hiatal her mallika.
--- NOTE | 2022-04-07 19:51 | RAD REPORT ---
EXAM DESCRIPTION: CTAbdomen Pelvis W Contrast - 04/07/2022 7:31 pm CLINICAL HISTORY: Abdominal pain. abdominal pain COMPARISON: Abdomen Pelvis W Contrast dated 06/26/2021 TECHNIQUE: Biphasic CT imaging of the abdomen and pelvis was performed with 100 ml non-ionic IV cont rast. All CT scans are performed using dose optimization technique as appropriate and may include automated exposure control or mA/KV adjustment according to patient size. FINDINGS: The lung bases are clear.Small hiatal hernia. The liver, spleen, pancreas, adrenal glands and kidneys are within normal limits. Cholecystectomy. No bowel obstruction, free air, free fluid or abscess. The appendix is normal. No evidence of signi ficant lymphadenopathy. Mild lumbar degenerative changes. Urinary bladder wall thickening with slight reticulation of the jose rounding fat noted. IMPRESSION: Query possible cystitis. Elsewhere, no acute or aggressive process detected.
[2022-04-07] MEDS ORDERED: POTASSIUM CL SA 10 MEQ TAB PO ONE (20:00)
[2022-04-07] MEDS: ENOXAPARIN 40 MG/0.4 ML SQ SCH (20:29)
[2022-04-07] MEDS: CEFOXITIN 1 GM in NA CHLORIDE 0.9% 50 ML IVPB SCH (20:29)
[2022-04-07] MEDS ORDERED: KCL 20 MEQ/100 mL IVPB 100 ML IV ONE (20:44)
[2022-04-07] MEDS ORDERED: KCL 20 MEQ/100 mL IVPB 20 MEQ/100 ML BAG IV SCH (22:00)
[2022-04-07 23:28] VITALS: O2SAT 99
[2022-04-08 00:30] VITALS: TEMP 97.8
[2022-04-08 05:29] VITALS: BP 134/60
[2022-04-08] MEDS: CEFOXITIN 1 GM in NA CHLORIDE 0.9% 50 ML IVPB SCH (07:53)
[2022-04-08] MEDS: ENOXAPARIN 40 MG/0.4 ML SQ SCH (08:04)
--- NOTE | 2022-04-08 10:20 | EKG ---
Test Date: 2022-04-07 Test Time: 16:11:21 [employer]: AGUST[employer]N MEASUREMENT RESULTS: Intervals: Rate: 50 IL: 128 QRSD: 70 QT: 440 QTc: 401 Raymond: P: -12 IL: 128 QRS: -8 T: 5 INTERPRETIVE STATEMENTS: Sinus bradycardia Otherwise normal ECG Compared to ECG 06/26/2021 14:41:22 No significant changes Electronically Signed On 04-08-22 10:17:35 CDT by Paxton Blanchard
--- NOTE | 2022-04-08 21:55 | P.DS ---
Admission Date: 04/07/22 Discharge Date: 04/08/22 Disposition: ROUTINE DISCHARGE Discharge Condition: [facility] Course: MOISES IS A SEVERELY DEMENTED LADY WHO HAS BEEN COMPLAINING OF ABDOMEN PAIN TO FOR LAST FEWDAYS. PAIN IS SEVERE PER HIM. SHE POINT TO LOWER ABDOMEN. I DECIDED TO ADMIT AND OBSERVE HER DO CT SCAN AND RULE OUT ACUTE ABDOMEN. SHE NEEDED LOT OF SEDATION TO DO CT SCAN AND TO KEEP HER IN [facility]. CT SHOWED CYSTTIS. SHE IS STABLE TO GO HOME ON ORAL ABX. Vital Signs/Physical Exam: Temp Pulse Resp BP Pulse Ox 97.8 F 64 16 134/60 96 04/08/22 04:00 04/08/22 04:00 04/08/22 04:00 04/08/22 04:00 04/08/22 04:00 Laboratory Data at Discharge: WBC Cancelled 04/08/22 16:29 Hgb Cancelled 04/08/22 16:29 Hct Cancelled 04/08/22 16:29 Plt Count Cancelled 04/08/22 16:29 APTT 31.2 SECONDS (24.3-36.9) 04/07/22 17:59 Sodium Cancelled 04/08/22 16:29 Potassium Cancelled 04/08/22 16:29 BUN Cancelled 04/08/22 16:29 Creatinine Cancelled 04/08/22 16:29 Glucose Cancelled 04/08/22 16:29 Phosphorus 2.7 mg/dL (2.5-4.9) 04/07/22 17:59 Magnesium Cancelled 04/08/22 16:29 Total Bilirubin 0.6 mg/dL (0.2-1.0) 04/07/22 17:59 AST 20 U/L (15-37) 04/07/22 17:59 ALT 28 U/L (12-78) 04/07/22 17:59 Alkaline Phosphatase 63 U/L (45-117) 04/07/22 17:59 Home Medications: Divalproex Sodium 125 mg PO TID 06/27/21 Donepezil HCl 10 mg PO BEDTIME 06/27/21 Levothyroxine [Synthroid] 88 mcg PO [id number] 06/27/21 Memantine HCl [Memantine HCl ER] 28 mg PO DAILY 06/27/21 Oxybutynin Chloride [Ditropan*] 5 mg PO BID 06/27/21 Pantoprazole [Protonix Tab*] 40 mg PO DAILY 06/27/21 Cefuroxime [Ceftin] 250 mg PO BID #14 tab 04/08/22 New Medications: Cefuroxime [Ceftin] 250 mg PO BID #14 tab
[2022-04-12 00:04] LABS: Vitamin D 1,25-Dihydroxy Total 39 pg/mL (18-72); Vitamin D,1,25-OH2, D2 <8 pg/mL
== END 2022-04-08 09:55 | disposition home or self-care (01) ==
LOC: 2ND 15:58
PROVIDERS: ADMIT Internal Medicine; ATTEND Internal Medicine
DX: N30.90 Cystitis, unspecified without hematuria (principal); G30.9 Alzheimer's disease, unspecified; F02.80 Dementia in other diseases classified elsewhere, unspecified severity, without behavioral disturbance, psychotic disturbance, mood disturbance, and anxiety; R00.1 Bradycardia, unspecified; L65.9 Nonscarring hair loss, unspecified; E66.8 Other obesity; Z68.30 Body mass index [BMI] 30.0-30.9, adult; Z79.899 Other long term (current) drug therapy; Z20.822 Contact with and (suspected) exposure to COVID-19
CPT/HCPCS: 93005; 87040; 85025; 80048; 36415; 83735; 84100; 80076; 85730; 82652; 84443; 82607; 74177; 71046; U0003; Q9967; J3480; J1650 ×2; J3486 ×2; J0694; G0378 ×3